=== PATIENT | female | born 1995 | race American Indian/Alaskan Native ===

== ENCOUNTER 2022-01-23 10:18 | Emergency (ER) | payer SELFPAY ==
[2022-01-23 12:27] LABS: Basophils % (Auto) 0.4 % (0.0-1.8); Eosinophils # (Auto) 0.2 K/mm3 (0.0-0.4); Eosinophils % (Auto) 1.9 % (0.0-4.3); Hematocrit 37.7 % (30.3-42.9); Hemoglobin 12.1 gm/dl (10.1-14.3); Lymphocytes # (Auto) 1.9 K/mm3 (1.2-5.4); Lymphocytes % (Auto) 20.9 % (13.4-35.0); Mean Corpuscular HGB Conc 32 % (30-34); Mean Corpuscular Volume 88 fl (79-97); Monocytes # (Auto) 0.6 K/mm3 (0.0-0.8); Platelet Count 282 K/mm3 (140-440); Red Cell Distribution Width 13.3 % (13.2-15.2)
[2022-01-23 12:46] LABS: Alanine Aminotransferase 11 units/L (7-56); Albumin 4.1 g/dL (3.9-5); BUN/Creatinine Ratio 12; Blood Urea Nitrogen 11 mg/dL (7-17); Calcium 9.2 mg/dL (8.4-10.2); Hemolysis Index 0
[2022-01-23 13:41] LABS: HCG Qualitative,Urine Negative (Negative)
[2022-01-23 13:42] LABS: Mucus,Urine 2+ /HPF
[2022-01-23] MEDS ORDERED: SODIUM CHLORIDE 0.9% 1000 ML 1,000 ML IV ONE (13:48)
[2022-01-23 14:00] LABS: Bilirubin,Urine Negative (Negative); Blood,Urine Large (Negative); Color,Urine Straw (Yellow); Urobilinogen,Urine < 2.0 mg/dL (<2.0)
--- NOTE | 2022-01-23 14:26 | XRay Report ---
CHEST 2 VIEWS INDICATION / CLINICAL INFORMATION: Syncope. COMPARISON: None available. FINDINGS: SUPPORT DEVICES: None. HEART / MEDIASTINUM: No significant abnormality. LUNGS / PLEURA: No significant pulmonary or pleural abnormality. No pneumothorax. ADDITIONAL FINDINGS: No significant additional findings. IMPRESSION: 1. No acute findings. Signer Name: Curry London DO Signed: 01/23/2022 2:22 PM Workstation Name: [id number]
--- NOTE | 2022-01-23 14:37 | Cat Scan Report ---
CT HEAD WITHOUT CONTRAST INDICATION / CLINICAL INFORMATION: syncope. TECHNIQUE: Axial imaging performed from the skull apex through the skull base without the use of cont rast. Sagittal and coronal reformatted images. All CT scans at this location are performed using CT dose reduction for ALARA by means of automated exposure control. COMPARISON: None available. FINDINGS: CEREBRAL PARENCHYMA: No significant abnormality. No acute territorial infarct. HEMORRHAGE: None. EXTRA-AXIAL SPACES: Normal in size and morphology for the patient's age. VENTRICULAR SYSTEM: Normal in size and morphology for the patient's age. MIDLINE SHIFT OR HERNIATION: None. CEREBELLUM / BRAINSTEM: No significant abnormality. CALVARIUM: No significant abnormality. ORBITS: Normal as visualized. PARANASAL SINUSES / MASTOID AIR CELLS: Normal as visualized. SOFT TISSUES of HEAD: No significant abnormality. ADDITIONAL FINDINGS: None. IMPRESSION: No acute intracranial abnormality. Signer Name: Gerard Guaman Jr, MD Signed: 01/23/2022 2:33 PM Workstation Name: [id number]
--- NOTE | 2022-01-23 16:59 | Emergency Department Report ---
ED Syncope HPI - General Chief Complaint: Syncope Stated Complaint: PASSED OUT/VOMITTING Source: patient, RN notes reviewed Exam Limitations: no limitations - History of Present Illness Initial Comments: Patient is a 24-year-old -[place] female with no past medical history who presents to the ED with complaint of acute onset persistent intermittent two syncopal episodes for the last 3 days. Patient states that about 3 days ago while at home and walking in her room she had a syncopal episode which was witnessed by family. Patient states that she did not come to the hospital for further evaluation following this incident. Patient states that about 2 hours prior to arrival in the ED while she was walking through the garage of her house she had another episode of syncope. Patient states that prior to the episodic syncope she felt an aura of nausea and lightheadedness before the syncopal episode occurred. Patient denies chest pain, shortness of breath, vaginal bleeding, dizziness, palpitations, seizures, headache, vomiting, abdominal pain, fever chills, cough, sore throat, nasal and sinus congestion, dysuria, urinary frequency and urgency or dysphonia. Timing/Prior Episodes: single episode today Precipitating Factors: Positive: unknown Context: standing Loss of Consciousness: brief (seconds) Current Symptoms: denies: back to normal, blurred vision, chest pain, diaphoresis, dizziness, headache, injury, lightheadedness, loss of bladder control, loss of bowel control, motionless, pale, shallow/rapid breathing, weak/absent pulse, weakness, other - Related Data Allergies/Adverse Reactions: Allergies No Known Allergies Allergy (Verified 01/23/22 10:55) ED Review of Systems ROS: Stated complaint: PASSED OUT/VOMITTING Other details as noted in HPI Constitutional: denies: chills, fever Eyes: denies: eye pain, eye discharge, vision change ENT: denies: ear pain, throat pain Respiratory: denies: cough, shortness of breath, wheezing Cardiovascular: syncope. denies: chest pain, palpitations Endocrine: no symptoms reported Gastrointestinal: denies: abdominal pain, nausea, vomiting, diarrhea Genitourinary: denies: urgency, dysuria, discharge Musculoskeletal: denies: back pain, joint swelling, arthralgia Skin: denies: rash, lesions Neurological: headache. denies: weakness, paresthesias Psychiatric: denies: anxiety, depression Hematological/Lymphatic: denies: easy bleeding, easy bruising ED Past Medical Hx - Past Medical History Previous Medical History?: No - Surgical History Past Surgical History?: No - Social History Smoking Status: Never Smoker ED Physical Exam - General Limitations: No Limitations General appearance: alert, in no apparent distress - Head Head exam: Present: atraumatic, normocephalic, normal inspection - Eye Eye exam: Present: normal appearance, PERRL, EOMI Pupils: Present: normal accommodation - ENT ENT exam: Present: normal exam, normal orophraynx, mucous membranes moist, TM's normal bilaterally, normal external ear exam - Neck Neck exam: Present: normal inspection, full ROM. Absent: tenderness - Respiratory Respiratory exam: Present: normal lung sounds bilaterally. Absent: respiratory distress, wheezes, rales, rhonchi, chest wall tenderness, accessory muscle use, decreased breath sounds - Cardiovascular Cardiovascular Exam: Present: regular rate, normal rhythm, normal heart sounds. Absent: systolic murmur, diastolic murmur, rubs, gallop - GI/Abdominal GI/Abdominal exam: Present: soft, normal bowel sounds. Absent: tenderness, guarding, rebound, hyperactive bowel sounds, hypoactive bowel sounds, organomegaly, mass - Extremities Exam Extremities exam: Present: normal inspection, full ROM, normal capillary refill. Absent: tenderness - Back Exam Back exam: Present: normal inspection, full ROM. Absent: tenderness, CVA tenderness (R), CVA tenderness (L), muscle spasm - Neurological Exam Neurological exam: Present: alert, oriented X3, CN II-XII intact, normal gait, reflexes normal - Psychiatric Psychiatric exam: Present: normal affect, normal mood - Skin Skin exam: Present: warm, dry, intact, normal color. Absent: rash ED Course Vital Signs 01/23/22 10:46 Temperature 98.8 F Pulse Rate 77 Respiratory 14 Rate Blood Pressure 145/96 O2 Sat by Pulse 100 Oximetry ED Medical Decision Making - Lab Data Result diagrams: 01/23/22 11:07 01/23/22 11:07 - EKG Data EKG shows normal: sinus rhythm Rate: normal - EKG Data Interpretation: normal EKG 01/23/22 17:17 The EKG shows normal sinus rhythm with a ventricular rate of [address] or T wave abnormalities. - Radiology Data Radiology results: report reviewed, image reviewed [facility] [address] [place] [address] Cat Scan Report Signed Patient: MARISSA LINARES MR#: [id number] : 1995 Acct:[id number] Age/Sex: 26 / F ADM Date: 01/23/22 Loc: ED Attending Dr: Ordering Physician: PÉREZ LAUREANO Date of Service: 01/23/22 Procedure(s): CT head/brain wo con Accession Number(s): [id number] cc: PÉREZ LAUREANO CT HEAD WITHOUT CONTRAST INDICATION / CLINICAL INFORMATION: syncope. TECHNIQUE: Axial imaging performed from the skull apex through the skull base without the use of contrast. Sagittal and coronal reformatted images. All CT scans at this location are performed using CT dose reduction for ALARA by means of automated exposure control. COMPARISON: None available. FINDINGS: CEREBRAL PARENCHYMA: No significant abnormality. No acute territorial infarct. HEMORRHAGE: None. EXTRA-AXIAL SPACES: Normal in size and morphology for the patient's age. VENTRICULAR SYSTEM: Normal in size and morphology for the patient's age. MIDLINE SHIFT OR HERNIATION: None. CEREBELLUM / BRAINSTEM: No significant abnormality. CALVARIUM: No significant abnormality. ORBITS: Normal as visualized. PARANASAL SINUSES / MASTOID AIR CELLS: Normal as visualized. SOFT TISSUES of HEAD: No significant abnormality. ADDITIONAL FINDINGS: None. IMPRESSION: No acute intracranial abnormality. Signer Name: Gerard Guaman Jr, MD Signed: 01/23/2022 2:33 PM Workstation Name: [id number] Transcribed By: TTR Dictated By: GERARD GUAMAN JR, MD Electronically Authenticated By: GERARD GUAMAN JR, MD Signed Date/Time: 01/23/221432 DD/ 31 TD/TT: [facility] [address] [place] [address] XRay Report Signed Patient: MARISSA LINARES MR#: [id number] : 1995 Acct:[id number] Age/Sex: 26 / F ADM Date: 01/23/22 Loc: ED Attending Dr: Ordering Physician: JAYLYN DUFF MD Date of Service: 01/23/22 Procedure(s): XR chest routine 2V Accession Number(s): [id number] cc: JAYLYN DUFF MD Fluoro Time In Minutes: CHEST 2 VIEWS INDICATION / CLINICAL INFORMATION: Syncope. COMPARISON: None available. FINDINGS: SUPPORT DEVICES: None. HEART / MEDIASTINUM: No significant abnormality. LUNGS / PLEURA: No significant pulmonary or pleural abnormality. No pneumothorax. ADDITIONAL FINDINGS: No significant additional findings. IMPRESSION: 1. No acute findings. Signer Name: Curry Cunningham DO Signed: 01/23/2022 2:22 PM Workstation Name: [id number] Transcribed By: DENISSE Dictated By: CURRY CUNNINGHAM DO Electronically Authenticated By: CURRY CUNNINGHAM DO Signed Date/Time: 01/23/221421 DD/ 21 TD/TT: - Medical Decision Making This is a 24-year-old -[place] female with no past medical history who presents to the ED with complaint of acute onset persistent intermittent two syncopal episodes for the last 3 days. Patient states that about 3 days ago while at home and walking in her room she had a syncopal episode which was witnessed by family. Patient states that she did not come to the hospital for further evaluation following this incident. Patient states that about 2 hours prior to arrival in the ED while she was walking through the garage of her house she had another episode of syncope. Patient states that prior to the episodic syncope she felt an aura of nausea and lightheadedness before the syncopal episo de occurred. In the ED, patient is alert and oriented x3 and is not in any distress. Patient is hemodynamically stable. All lab test results were reviewed and are all nonactionable. EKG shows normal sinus rhythm with a ventricular rate of [address] or T wave abnormalities. Chest x-ray sh owed no acute cardiopulmonary abnormalities or pneumonitis. The head CT scan without contrast showed no acute intracranial abnormalities or hemorrhage. Patient has not had any syncopal episodes while in the ED. Patient was discharged home and advised to follow-up with her primary care physician in 3 to 5 days for reevaluation or investor Dr. Castillo in 5 to 7 days for reevaluation. Patient was advised to return to the ED immediately if symptoms get worse. - Differential Diagnosis syncope; dehydration; anxiety; ACS Critical care attestation.: If time is entered above; I have spent that time in minutes in the direct care of this critically ill patient, excluding procedure time. ED Disposition Clinical Impression: Syncope with normal neurologic examination, Orthostatic lightheadedness Disposition: 01 HOME / SELF CARE / HOMELESS Is pt being admited?: No Does the pt Need Aspirin: No Condition: Stable Instructions: Syncope (ED), Dizziness, [id number], Syncope, [id number] Additional Instructions: All lab test results were reviewed and are all nonactionable. The head CT scan without contrast showed no acute intracranial abnormalities or hemorrhage. The chest x-ray showed no acute cardiopulmonary abnormalities or pneumonitis. Th erefore drink plenty of fluids, follow-up with your primary care physician in 5 to 7 days for reevaluation. Return to the ED immediately if symptoms get worse. Referrals: NEHAL POE MD [Primary Care Provider] - 3-5 Days AP CASTILLO MD [Staff Physician] - 3-5 Days Forms: Work/School Release Form(ED) Time of Disposition: 17:02 Print Language: HAITIAN
[2022-01-23 17:21] VITALS: BP 122/74
--- NOTE | 2022-01-24 17:46 | Electrocardiograph Report ---
[facility] Test Date: 2022-01-23 Test Time: 10:58:57 Pat Name: MARISSA LINARES Department: Room: Gender: F Sports Clerk: DENEEN : 1995 Requested By: JAYLYN DUFF Order Number: [id number] Reading MD: Jaren Leos Measurements Intervals [place] Rate: 80 P: 81 IN: 132 QRS: 55 QRSD: 79 T: 29 QT: 378 QTc: 436 Interpretive Statements Sinus rhythm No previous ECG available for comparison Electronically Signed On 01-24-2022 17:46:23 EDT by Jaren Leos
== END 2022-01-23 17:18 | disposition home or self-care (01) ==
LOC: ED 10:18
DX: R55 Syncope and collapse (principal); R42 Dizziness and giddiness; Z79.899 Other long term (current) drug therapy
CPT/HCPCS: 36415; 70450; 71046; 80053; 81001; 81025; 84484; 85025; 93005; 96360; 99284; J7030

== ENCOUNTER 2022-03-14 07:16 | Emergency (ER) | payer SELFPAY ==
[2022-03-14] MEDS ORDERED: predniSONE 20 MG TAB PO ONE (07:55)
[2022-03-14] MEDS ORDERED: KETOROLAC 10 MG TAB PO ONE (07:55)
[2022-03-14] MEDS ORDERED: ACETAMINOPHEN W/CODEINE 300-30 MG TAB PO ONE (07:55)
[2022-03-14] MEDS ORDERED: BENZONATATE 100 MG CAP PO ONE (07:55)
--- NOTE | 2022-03-14 08:28 | XRay Report ---
CHEST 2 VIEWS INDICATION: fever, sob. COMPARISON: 01/23/2022 FINDINGS: SUPPORT DEVICES: None. HEART: Within normal limits. LUNGS/PLEURA: No acute air space or interstitial disease. No pneumothorax. ADDITIONAL FINDINGS: None. IMPRESSION: 1. No acute findings. Signer Name: Sarmad Nash MD Signed: 03/14/2022 8:24 AM Workstation Name: [id number]
--- NOTE | 2022-03-14 09:58 | Emergency Department Report ---
ED ENT HPI - General Chief complaint: Upper Respiratory Infection Stated complaint: HEAD PAIN/BODY PAIN Time Seen by Provider: 03/14/22 07:56 Source: patient Mode of arrival: Ambulatory Limitations: No Limitations - History of Present Illness Initial comments: 26-year-old black female with no past medical history presents to the emergency department for evaluation of body aches, headache, left ear pain, cough, congestion, intermittent shortness of breath. MD complaint: ear pain, other (Cough, congestion, body aches, and headaches) -: Gradual, days(s) (2-3) Location: L ear Severity: severe Severity scale (0 -10): 10 Quality: aching Consistency: constant Associated Symptoms: fever, cough, discharge from ear, rhinorrhea. denies: gum swelling, toothache, pain with swallowing, sore throat, tinnitus, hearing loss - Related Data Previous Rx's Medication Instructions Recorded Last Taken Type Benzonatate [Tessalon Perles] 100 mg PO Q8HR PRN #30 cap 03/14/22 Unknown Rx Ciprofloxacin HCl/Dexameth 4 drop OTIC BID 7 Days #7.5 ml 03/14/22 Unknown Rx [Ciprodex Otic Suspension] guaiFENesin/CODEINE [Robitussin AC] 10 ml PO TID PRN #120 ml 03/14/22 Unknown Rx predniSONE [Deltasone] 50 mg PO QDAY 5 Days #5 tab 03/14/22 Unknown Rx Allergies Allergy/AdvReac Type Severity Reaction Status Date / Time No Known Allergies Allergy Verified 03/14/22 07:56 ED Dental HPI - General Chief complaint: Upper Respiratory Infection Stated complaint: HEAD PAIN/BODY PAIN Time Seen by Provider: 03/14/22 07:56 Source: patient Mode of arrival: Ambulatory Limitations: No Limitations - Related Data Previous Rx's Medication Instructions Recorded Last Taken Type Benzonatate [Tessalon Perles] 100 mg PO Q8HR PRN #30 cap 03/14/22 Unknown Rx Ciprofloxacin HCl/Dexameth 4 drop OTIC BID 7 Days #7.5 ml 03/14/22 Unknown Rx [Ciprodex Otic Suspension] guaiFENesin/CODEINE [Robitussin AC] 10 ml PO TID PRN #120 ml 03/14/22 Unknown Rx predniSONE [Deltasone] 50 mg PO QDAY 5 Days #5 tab 03/14/22 Unknown Rx Allergies Allergy/AdvReac Type Severity Reaction Status Date / Time No Known Allergies Allergy Verified 03/14/22 07:56 ED Review of Systems ROS: Stated complaint: HEAD PAIN/BODY PAIN Other details as noted in HPI Comment: All other systems reviewed and negative Constitutional: fever, malaise Eyes: denies: eye discharge, vision change ENT: ear pain, congestion Respiratory: shortness of breath. denies: SOB with exertion, SOB at rest, wheezing Cardiovascular: denies: chest pain, palpitations Gastrointestinal: denies: abdominal pain, nausea, vomiting Musculoskeletal: denies: back pain Neurological: headache ED Past Medical Hx - Past Medical History Previous Medical History?: No - Surgical History Past Surgical History?: No - Social History Smoking Status: Never Smoker - Medications Home Medications: Home Medications Medication Instructions Recorded Confirmed Last Taken Type Benzonatate [Tessalon Perles] 100 mg PO Q8HR PRN #30 cap 03/14/22 Unknown Rx Ciprofloxacin HCl/Dexameth 4 drop OTIC BID 7 Days #7.5 ml 03/14/22 Unknown Rx [Ciprodex Otic Suspension] guaiFENesin/CODEINE [Robitussin AC] 10 ml PO TID PRN #120 ml 03/14/22 Unknown Rx predniSONE [Deltasone] 50 mg PO QDAY 5 Days #5 tab 03/14/22 Unknown Rx ED Physical Exam - General Limitations: No Limitations General appearance: alert, in no apparent distress - Head Head exam: Present: atraumatic, normocephalic - Eye Eye exam: Present: normal appearance. Absent: conjunctival injection, periorbital swelling, periorbital tenderness - ENT ENT exam: Present: TM's normal bilaterally. Absent: normal external ear exam - Expanded ENT Exam Expanded TM/Canal exam: Canal Discharge: Left TM, Canal Tenderness: Left TM (Also has post and preauricular tenderness) Mouth exam: Present: normal external inspection Throat exam: Negative: tonsillar erythema, tonsillomegaly, tonsillar exudate, R peritonsillar mass, L peritonsillar mass - Neck Neck exam: Present: normal inspection, full ROM. Absent: tenderness, lymphadenopathy - Respiratory Respiratory exam: Present: normal lung sounds bilaterally. Absent: respiratory distress, wheezes, rales, rhonchi, stridor, chest wall tenderness - Cardiovascular Cardiovascular Exam: Present: regular rate, normal heart sounds - GI/Abdominal GI/Abdominal exam: Present: soft, normal bowel sounds. Absent: distended, tenderness, guarding - Extremities Exam Extremities exam: Present: normal inspection, normal capillary refill - Back Exam Back exam: Present: normal inspection. Absent: CVA tenderness (R), CVA tenderness (L) - Neurological Exam Neurological exam: Present: alert, oriented X3, CN II-XII intact, normal gait - Psychiatric Psychiatric exam: Present: normal affect, normal mood - Skin Skin exam: Present: warm, dry, intact, normal color ED Course Vital Signs 03/14/22 03/14/22 03/14/22 07:55 10:35 10:37 Temperature 100.6 F H 99.7 F H Pulse Rate 85 81 Respiratory 18 18 Rate Blood Pressure 135/86 141/87 [Left] O2 Sat by Pulse 99 97 96 Oximetry ED Medical Decision Making - Medical Decision Making 26-year-old black female with no past medical history presents to the emergency department for evaluation of body aches, headache, left ear pain, cough, congestion, intermittent shortness of breath. Exam positive for left otitis externa. Chest x-ray without any acute abnormalities noted. Patient will be discharged home with Ciprodex, prednisone, Tessalon Perles, and Robitussin-AC. She is advised to take medications as prescribed and follow-up with her primary care provider if no improvement or worsening symptoms. She is advised to return to the emergency department as needed. He verbalizes understanding of and agreement with plan of care. Critical care attestation.: If time is entered above; I have spent that time in minutes in the direct care of this critically ill patient, excluding procedure time. ED Disposition Clinical Impression: Viral syndrome Left otitis externa Qualifiers: Otitis externa type: unspecified type Chronicity: acute Qualified Code(s): H60.502 - Unspecified acute noninfective otitis externa, left ear Disposition: 01 HOME / SELF CARE / HOMELESS Is pt being admited?: No Does the pt Need Aspirin: No Condition: Stable Instructions: Otitis Externa, [id number], Ear Drops, Adult, [id number], Viral Illness, Adult Additional Instructions: Take medications as prescribed. Follow-up with your primary care provider if no improvement or worsening symptoms. Return to the emergency department as needed. Prescriptions: Ciprofloxacin HCl/Dexameth [Ciprodex Otic Suspension] 4 drop OTIC BID 7 Days #7.5 ml predniSONE [Deltasone] 50 mg PO QDAY 5 Days #5 tab guaiFENesin/CODEINE [Robitussin AC] 10 ml PO TID PRN #120 ml PRN Reason: Cough Benzonatate [Tessalon Perles] 100 mg PO Q8HR PRN #30 cap PRN Reason: Cough Referrals: NEHAL POE MD [Primary Care Provider] - 3-5 Days NAY ESPINOSA MD [Referring] - 3-5 Days Forms: Work/School Release Form(ED) Time of Disposition: 09:59
[2022-03-14 10:39] VITALS: BP 141/87
== END 2022-03-14 10:38 | disposition home or self-care (01) ==
LOC: ED 07:16
DX: H60.92 Unspecified otitis externa, left ear (principal); B34.9 Viral infection, unspecified; R51.9 Headache, unspecified; Z79.899 Other long term (current) drug therapy
CPT/HCPCS: 71046; 99283